=== PATIENT | male | born 1980 | race Caucasian/White ===

== ENCOUNTER → 2016-08-09 | Day surgery (SDC) | payer BC ==
[~2016-08-09] MED LIST: ACETAMINOPHEN PO; ASACOL400 MG PO; DELZICOL400 M2 PO; DEPAKOTE250 MG PO; DULOXETINE HCL20 MG PO; FLAGYL PO; IMURAN50 MG PO; NO MEDICATIONS; PREDNISONE; PREDNISONE10 MG PO; SELFEMRA20 MG PO; [UNRECOGNIZED DRUG - OTHER] PO
--- NOTE | ~2016-08-09 | OR ---
Unit #: [id number] #: [id number] Patient: TOMMIE BRANDT [id number] [address] [place], [place] [address] [id number] O MR#: [id number] NAME: TOMMIE BRANDT. ROOM: Date of Procedure: 08/09/2016 Admission Date: 08/09/2016 Surgeon: Bishop May M.D. : 1980 Attending Physician: Bishop May M.D. Primary Care Physician: Pascale Lucio M.D. OPERATIVE REPORT PRIMARY CARE PHYSICIAN Pascale Lucio M.D. PREOPERATIVE DIAGNOSES The patient has come for surveillance colonoscopy. He has personal history of ulcerative colitis in remission and has come for elective colonoscopy. PROCEDURES PERFORMED 1. Colonoscopy with biopsies. 2. Colonoscopy and polypectomy. POSTOPERATIVE DIAGNOSES The patient had extensive pseudopolyps and a large areas of collection seemed like mass lesions. These were present throughout the entire colon except rectosigmoid, which was relatively normal. Biopsies obtained from the terminal ileum was normal. The overall findings are consistent with ulcerative colitis in remission with extensive pseudopolyposis. Multiple biopsies were obtained from the cecum, right colon, ascending colon, transverse colon, descending colon, and rectosigmoid sent for histology. In addition, the polyps were removed from the transverse colon and also from descending colon and sent for histology. RECOMMENDATIONS 1. Follow up in the office in 3 months' time. 2. The patient was advised to take Apriso 4 tablets p.o. daily 1.5 g p.o. daily. 3. He will require a repeat colonoscopy in 2 years. SEDATION USED MAC. DESCRIPTION OF PROCEDURE Following detailed explanation of the potential risks and complications of a colonoscopy, namely perforation, bleeding, and complications related to sedation, the patient was brought to GI lab and laid in the left lateral decubitus position. A digital rectal examination was performed, which was normal. Lubricated tip of the Olympus video colonoscope was inserted through the anus and advanced under direct vision. The scope was advanced and passed up to sigmoid into descending colon. Scant small diverticula were seen in this area. The scope tip was then navigated all the way up to cecum with visualization of the ileocecal valve and the appendiceal Unit #: [id number] #: [id number] Patient: TOMMIE BRANDT. The patient had multiple and extensive pseudopolyposis seen along the way. The quality of prep was excellent. Last several inches of terminal ileum also visualized after intubation of the ileocecal valve and appeared normal. Successive segments of the colonic mucosa were examined upon withdrawal. Extensive pseudopolyps were seen throughout. Managing Director biopsies obtained from the right colon, ascending and transverse colon, descending colon, sigmoid colon, and rectosigmoid. They were sent for histology. In addition, a large polyps were removed from the ascending and transverse colon. These were sent for histology. The polyps ranged in size from 1 cm to 2.5 cm each. A total of 4 polyps were removed. The patient did not have any internal hemorrhoids. The scope was then withdrawn. The patient returned to the recovery area. He tolerated the procedure without any postprocedure complications. Dictated by... Paul Green/lindy TD: 08/10/2016 04:09 JOB #: [id number] OPERATIVE REPORT X Bishop May MD X PROCEDURE OPERATIVE NOTE
== END | disposition home or self-care (01) ==
LOC: COPS 08:10
DX: Z12.11 Encounter for screening for malignant neoplasm of colon (principal); K52.9 Noninfective gastroenteritis and colitis, unspecified; K63.5 Polyp of colon; K21.9 Gastro-esophageal reflux disease without esophagitis; Z87.19 Personal history of other diseases of the digestive system; Z80.0 Family history of malignant neoplasm of digestive organs; Z79.899 Other long term (current) drug therapy; Z79.891 Long term (current) use of opiate analgesic
CPT/HCPCS: 88305; J2250